=== PATIENT | male | born 1990 | race African-American/Black ===

== ENCOUNTER 2024-06-18 07:20 | Emergency (ER) | payer MEDICAID ==
[~2024-06-18] VITALS: Ht 162.6 cm; Wt 73.0 kg
[2024-06-18 07:23] VITALS: O2SAT 98
[2024-06-18 07:33] VITALS: BP 121/82; TEMP 98.2
[2024-06-18] MEDS ORDERED: IPRATROPIUM/ALBUTEROL 0.5-3(2.5)MG/3ML NEB HHN STA (07:51)
[2024-06-18 08:05] VITALS: PULSE 88; RESP 25; O2SAT 99
[2024-06-18] MEDS: DEXAMETHASONE 4MG TABLET PO ONE (08:24)
[2024-06-18] MEDS ORDERED: IPRATROPIUM/ALBUTEROL 0.5-3(2.5)MG/3ML NEB ONE (09:52)
[2024-06-18] MEDS ORDERED: IPRATROPIUM/ALBUTEROL 0.5-3(2.5)MG/3ML NEB HHN ONE (10:00)
[2024-06-18] MEDS ORDERED: ALBU18HF2 IH (10:08)
== END 2024-06-18 10:17 | disposition home or self-care (01) ==
LOC: ER 07:20
DX: J45.901 Unspecified asthma with (acute) exacerbation (principal); Z98.890 Other specified postprocedural states
CPT/HCPCS: 93005; 94070; 99283; J8540; Z7610; 99284

== ENCOUNTER 2024-07-18 03:24 | Emergency (ER) | payer MEDICAID ==
[~2024-07-18] VITALS: Ht 163.8 cm; Wt 75.2 kg
[~2024-07-18 03:24] MED LIST: ALBU18HF2 IH
[2024-07-18 03:28] VITALS: BP 135/80; TEMP 36.9; O2SAT 95
[2024-07-18] MEDS: PREDNISONE 20MG TABLET PO ONE (03:45)
[2024-07-18 03:57] VITALS: PULSE 78; RESP 20; O2SAT 98
[2024-07-18] MEDS: ALBUTEROL (0.083%) 2.5MG/3ML NEB HHN ONE (03:57)
== END 2024-07-18 05:13 | disposition home or self-care (01) ==
LOC: ER 03:24
DX: J45.901 Unspecified asthma with (acute) exacerbation (principal)
CPT/HCPCS: 94640; 99283; J7512; Z7610 ×3